=== PATIENT | male | born 1980 | race African-American/Black ===

== ENCOUNTER 2021-09-08 07:38 | Inpatient (IN) | payer OTHER, SELFPAY ==
[~2021-09-08] VITALS: Ht 188 cm; Wt 99.3 kg
[~2021-09-08 07:38] MED LIST: ATI.5 PO; [UNRECOGNIZED DRUG - CODE] PO
[2021-09-08 07:44] VITALS: BP 170/112
[2021-09-08 08:47] LABS: APPEARANCE,URINE CLEAR (CLEAR); BILIRUBIN,URINE NEGATIVE (NEGATIVE); BLOOD, URINE NEGATIVE (NEGATIVE); COLOR,URINE YELLOW (YELLOW); LEUKOCYTE ESTERASE ,URINE NEGATIVE (NEGATIVE); NITRITE, URINE NEGATIVE (NEGATIVE); UGLUCOSE NEGATIVE (NEGATIVE)
[2021-09-08 08:54] LABS: BARBITURATE, URINE NEGATIVE ng/ml (NEG <=200); BENZODIAZEPINE, URINE NEGATIVE ng/mL (NEG <=200); CANNABINOID, URINE POSITIVE ng/mL (NEG <=50); COCAINE, URINE NEGATIVE ng/mL (NEG <=300); OPIATE, URINE NEGATIVE ng/mL (NEG <=2000); PHENCYCLIDINE SCREEN,URINE NEGATIVE ng/mL (NEG <=25)
[2021-09-08 09:09] LABS: BASOPHILS % (AUTO) 0.5 % (0.0-2.0); EOSINOPHILS % (AUTO) 0.7 % (0.0-4.0); HEMATOCRIT 38.8 % (36-52); HEMOGLOBIN 13.1 g/dL (12.0-18.0); LYMPHOCYTES # (AUTO) 0.9 K/uL (2.0-11.5); LYMPHOCYTES % (AUTO) 15.9 % (20.5-51.1); MEAN CORPUSCULAR HEMOGLOBIN 29 pg (27-31); MEAN CORPUSCULAR HGB CONC 34 g/dL (33-37); MEAN CORPUSCULAR VOLUME 85.7 fL (80-94); MONOCYTES # (AUTO) 0.5 K/uL (0.8-1.0); NEUTROPHILS # (AUTO) 4.3 K/uL (1.8-7.7); NEUTROPHILS % (AUTO) 74.9 % (42.2-75.2); PLATELET COUNT (AUTO) 290 K/uL (140-450); RED BLOOD CELL COUNT(AUTO) 4.53 MIL/uL (4.20-6.10); RED CELL DISTRIBUTION WIDTH 12.9 % (11.6-13.7); WHITE BLOOD COUNT (AUTO) 5.7 K/uL (4.8-10.8)
[2021-09-08 09:09] LABS: RBC,URINE 0-5 /HPF (0-5); WBC,URINE 0-5 /HPF (0-5)
[2021-09-08] MEDS ORDERED: amLODIPine 5 MG TAB PO ONE (09:55)
[2021-09-08] MEDS ORDERED: AMLO-271 PO (09:55)
[2021-09-08 10:28] LABS: CHLORIDE 103 mmol/L (98-107); POTASSIUM 3.4 mmol/L (3.5-5.1); SODIUM SERUM 141 mmol/L (136-145)
[2021-09-08 10:29] LABS: ANION GAP 9.9 (8-16); ASPARTATE AMINOTRANSFERASE 24 U/L (15-37); CARBON DIOXIDE 31.5 mmol/L (21-32); CREATININE 1.2 mg/dL (0.6-1.3); GFR ARICAN-AMERICAN 87 mL/min (>90); GLUCOSE 108 mg/dL (74-106); TOTAL BILIRUBIN 0.4 mg/dL (0.0-1.0); UREA NITROGEN, BLOOD 14 mg/dL (7-18)
[2021-09-08 10:30] LABS: ACETAMINOPHEN < 0.5 ug/ml (10-30); ALBUMIN 3.7 g/dL (3.4-5.0); SALICYLATE < 2.8 mg/dL (2.8-20.0)
[2021-09-08] MEDS ORDERED: ACETAMINOPHEN 325 MG TAB PO PRN (11:40)
[2021-09-08] MEDS ORDERED: ONDANSETRON 4 MG/2 ML VIAL IVP PRN (11:40)
[2021-09-08] MEDS ORDERED: hydrALAZINE 10 MG TAB PO SCH (12:04)
[2021-09-08] MEDS: NACL 0.9% 1,000 ML IV SCH (12:08)
[2021-09-08 12:12] LABS: CREATINE KINASE MB 5.6 ng/mL (0-3.6)
[2021-09-08] MEDS ORDERED: hydrALAZINE 20 MG/ML VIAL IVP SCH (14:40)
[2021-09-08 16:49] VITALS: BP 152/95
[2021-09-08 20:00] VITALS: BP 139/79
[2021-09-09] VITALS: BP 154/80
[2021-09-09] MEDS: NACL 0.9% 1,000 ML IV SCH (01:47)
[2021-09-09 04:00] VITALS: BP 151/89
[2021-09-09 06:27] LABS: BASOPHILS % (AUTO) 0.4 % (0.0-2.0); EOSINOPHILS # (AUTO) 0.1 K/uL (0-0.4); HEMATOCRIT 36.8 % (36-52); HEMOGLOBIN 12.7 g/dL (12.0-18.0); LYMPHOCYTES # (AUTO) 1.5 K/uL (2.0-11.5); LYMPHOCYTES % (AUTO) 30.5 % (20.5-51.1); MEAN CORPUSCULAR HEMOGLOBIN 30 pg (27-31); MEAN CORPUSCULAR HGB CONC 35 g/dL (33-37); MEAN CORPUSCULAR VOLUME 85.6 fL (80-94); MONOCYTES # (AUTO) 0.4 K/uL (0.8-1.0); MONOCYTES % (AUTO) 8.7 % (1.7-9.3); NEUTROPHILS # (AUTO) 2.8 K/uL (1.8-7.7); NEUTROPHILS % (AUTO) 58.4 % (42.2-75.2); PLATELET COUNT (AUTO) 331 K/uL (140-450); RED CELL DISTRIBUTION WIDTH 13.4 % (11.6-13.7); WHITE BLOOD COUNT (AUTO) 4.8 K/uL (4.8-10.8)
[2021-09-09 06:36] LABS: ANION GAP 8.2 (8-16); CARBON DIOXIDE 30.3 mmol/L (21-32); CREATININE 1.1 mg/dL (0.6-1.3); MAGNESIUM 1.7 mg/dL (1.8-2.4); POTASSIUM 3.5 mmol/L (3.5-5.1); TOTAL BILIRUBIN 0.5 mg/dL (0.0-1.0)
[2021-09-09 08:00] VITALS: BP 149/99
[2021-09-09] MEDS ORDERED: ENOXAPARIN 40 MG/0.4 ML SYR SUBQ SCH (09:00)
[2021-09-09] MEDS ORDERED: ASPIRIN 81 MG TAB.CHEW PO SCH (09:00)
[2021-09-09 11:16] VITALS: BP 149/99
[2021-09-09 12:44] LABS: CREATINE KINASE MB 2.2 ng/mL (0-3.6)
== END 2021-09-09 12:30 | disposition home or self-care (01) | DRG 812 ==
LOC: MED 07:38 → MTU 11:45
PROVIDERS: ADMIT Hospitalist; ATTEND Hospitalist
DX: T40.601A Poisoning by unspecified narcotics, accidental (unintentional), initial encounter (principal); I46.9 Cardiac arrest, cause unspecified; I10 Essential (primary) hypertension; Z20.822 Contact with and (suspected) exposure to COVID-19; Y92.89 Other specified places as the place of occurrence of the external cause
CPT/HCPCS: 36415; 70450; 71045; 80053; 80305; 81001; 82550; 82553; 83735; 84484; 85025; 87081; 93005; 96374; 99291; G0480; G0482; J0360; J1650; Q0092